=== PATIENT | male | born 1990 | race Caucasian/White ===

== ENCOUNTER 2016-10-20 17:09 | Emergency (ER) | payer SELFPAY ==
[~2016-10-20] VITALS: Ht 172.7 cm; Wt 65.8 kg
== END 2016-10-20 18:30 | disposition short-term general hospital (02) ==
LOC: ER 17:09 → LAB 17:09 → EDBD 17:09 → ER 18:30
PROC: 0H91XZZ Drainage of Face Skin, External Approach (ICD-10-PCS; principal; 2016-10-20)
DX: L72.3 Sebaceous cyst (principal)
CPT/HCPCS: J0696